=== PATIENT | female | born 1950 | race Two or more races ===

== ENCOUNTER 2021-04-09 15:00 | Outpatient (CLI) | payer OTHER | END 2021-04-09 15:30 | disposition home or self-care (01) | LOC: PPH VACUNA 15:00 | PROVIDERS: ATTEND Emergency Medicine Pediatric Emergency Medicine | DX: Z23 Encounter for immunization (principal) ==

== ENCOUNTER 2021-10-27 08:00 | Outpatient (CLI) | payer OTHER | END 2021-10-27 08:30 | disposition home or self-care (01) | LOC: PPH VACUNA 08:00 | PROVIDERS: ATTEND Emergency Medicine Pediatric Emergency Medicine | DX: Z23 Encounter for immunization (principal) ==

== ENCOUNTER 2022-10-29 08:24 | Emergency (ER) | payer OTHER ==
[~2022-10-29] VITALS: Ht 172.7 cm; Wt 77.1 kg
[2022-10-29] MEDS ORDERED: BUPROPION HCL150 M1 PO (09:09)
[2022-10-29] MEDS ORDERED: FENOFIBRATE150 MG PO (09:10)
[2022-10-29] MEDS ORDERED: DICLOFENAC SOD100 GM TP (09:10)
[2022-10-29] MEDS ORDERED: NORVASC2.5 MG PO (09:10)
[2022-10-29] MEDS ORDERED: LOSARTAN POTASS50 MG PO (09:10)
[2022-10-29] MEDS ORDERED: METOPROLOL SUCC50 MG PO (09:10)
== END 2022-10-29 15:15 | disposition home or self-care (01) ==
LOC: ER 08:24
DX: R10.32 Left lower quadrant pain (principal); I10 Essential (primary) hypertension; M51.34 Other intervertebral disc degeneration, thoracic region